=== PATIENT | female | born 2000 | race Two or more races ===

== ENCOUNTER 2022-09-17 20:29 | Emergency (ER) | payer OTHER ==
[~2022-09-17] VITALS: Ht 157.5 cm; Wt 56.7 kg
[2022-09-18] MEDS ORDERED: ONDANSETRON ODT8 MG PO (00:05)
[2022-09-18] MEDS ORDERED: PEPCID AC20 MG PO (00:05)
== END 2022-09-18 00:10 | disposition home or self-care (01) ==
LOC: ER 20:29
DX: O21.0 Mild hyperemesis gravidarum (principal); Z3A.00 Weeks of gestation of pregnancy not specified; K29.70 Gastritis, unspecified, without bleeding

== ENCOUNTER 2023-04-28 10:25 | Inpatient (IN) | payer OTHER ==
[~2023-04-28] VITALS: Ht 160 cm; Wt 2.7 kg
[~2023-04-28 10:25] MED LIST: ONDANSETRON ODT8 MG PO; PEPCID AC20 MG PO
[2023-04-28 11:39] LABS: HEMATOCRIT 31.6 % (36.0-45.00); HEMOGLOBIN 10.9 g/dL (12.0-15.00); MEAN CELL VOLUME 85.2 fL (80.00-100.00); MEAN CORPUSCULAR HEMOGLOBIN 29.3 pg (27.00-32.0); MEAN CORPUSCULAR HGB CONC 34.5 g/dl (32.0-36.0); PLATELET COUNT 212 K/uL (150-450); RED BLOOD COUNT 3.71 M/uL (4.00-6.00); RED CELL DISTRIBUTION WIDTH 13.1 % (11.5-14.5)
[2023-04-28 11:40] LABS: PH,URINE 6.5 (5.0-8.0); URINE APPEARANCE Clear; URINE BILIRRUBIN Negative (NEGATIVE); URINE BLOOD Negative; URINE COLOR Yellow; URINE GLUCOSE Negative (NEGATIVE); URINE LEUKOCYTE Moderate; URINE NITRATE Negative; URINE PROTEIN Negative (NEGATIVE)
[2023-04-28 11:43] LABS: URINE BACTERIA 9711.7 uL (0.0-1933); URINE RBC 4.3 uL (0.0-20.8); URINE WBC 80.5 uL (0.0-23.2)
[2023-04-28 11:59] LABS: URINE CRYSTALS NEGATIVE /HPF
[2023-04-28 12:03] LABS: INR < 0.93; PARTIAL THROMBOPLASTIN TIME 24.7 SECONDS (22.0-34.0); PROTHROMBIN TIME 9.5 SECONDS (9.0-11.5)
[2023-04-28] MEDS ORDERED: PRENATAL TABLE1 EAC1 PO (12:15)
[2023-04-28 12:17] LABS: ALBUMIN 2.7 gm/dL (3.4-5.0); BILIRUBIN TOTAL 0.51 mg/dL (0.3-1.2); CALCIUM 8.8 mg/dL (8.5-10.1); CREATININE SERUM 0.61 mg/dL (0.55-1.02); GFR 121.54; GLOBULINA 4.1 G/DL (2.4-3.5); POTASSIUM 3.96 mEq/L (3.5-5.1); TOTAL PROTEIN 6.8 gm/dL (6.4-8.2)
[2023-04-30 06:59] LABS: ABG PH 7.308 (7.35-7.45); ABG pCO2 46.8 mmHg (35-45); BASE EXCESS -3.6 mmol/l; BICARBONATE 22.9 mmol/l (23-25); SaO2 38.8 %; Tco2 24.4 mmol/l
[2023-04-30 07:00] LABS: ABG PO2 25.5 mmHg (80-100); o2 21 %
[2023-04-30 13:21] LABS: HEMATOCRIT 30.4 % (36.0-45.00); HEMOGLOBIN 10.4 g/dL (12.0-15.00); MEAN CELL VOLUME 86.7 fL (80.00-100.00); MEAN CORPUSCULAR HEMOGLOBIN 29.8 pg (27.00-32.0); MEAN CORPUSCULAR HGB CONC 34.3 g/dl (32.0-36.0); PLATELET COUNT 205 K/uL (150-450); RED BLOOD COUNT 3.51 M/uL (4.00-6.00); RED CELL DISTRIBUTION WIDTH 13.3 % (11.5-14.5)
[2023-05-03] MEDS ORDERED: COLACE100 MG PO (07:01)
[2023-05-03] MEDS ORDERED: IBU800 MG PO (07:02)
[2023-05-03] MEDS ORDERED: SIMETHICONE125 M1 PO (07:02)
== END 2023-05-03 16:42 | disposition home or self-care (01) | DRG 788 ==
LOC: LDR 10:25 → OB/GYN 04-30 05:31
PROVIDERS: ADMIT Specialist; ATTEND Specialist
PROC: 3E0P7VZ Introduction of Hormone into Female Reproductive, Via Natural or Artificial Opening (ICD-10-PCS; 2023-04-28)
PROC: 4A1HXCZ Monitoring of Products of Conception, Cardiac Rate, External Approach (ICD-10-PCS; 2023-04-28)
PROC: 10D00Z1 Extraction of Products of Conception, Low, Open Approach (ICD-10-PCS; principal; 2023-04-29)
PROC: 3E033VJ Introduction of Other Hormone into Peripheral Vein, Percutaneous Approach (ICD-10-PCS; 2023-04-29)
DX: O61.0 Failed medical induction of labor (principal); Z3A.39 39 weeks gestation of pregnancy; Z37.0 Single live birth; Z20.822 Contact with and (suspected) exposure to COVID-19